=== PATIENT | male | born 1990 | race Caucasian/White ===

== ENCOUNTER 2019-03-02 21:49 | Emergency (ER) | payer SELFPAY ==
[2019-03-02] MEDS ORDERED: DIPH,PERTUSS(ACELL),TET VAC/PF 0.5 ML DISP.SYRIN IM ONE (21:50)
[2019-03-02] MEDS ORDERED: Lidocaine 1% 5ml 10 MG/ML VIAL IJ ONE (21:50)
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
[2019-03-03 01:25] VITALS: BP 126/82
== END 2019-03-02 22:48 | disposition home or self-care (01) ==
LOC: ED 21:49
DX: S61.411A Laceration without foreign body of right hand, initial encounter (principal); W26.0XXA Contact with knife, initial encounter
CPT/HCPCS: 12001; 90715; 96372; 99282; 99284